=== PATIENT | male | born 1970 | race American Indian/Alaskan Native ===

== ENCOUNTER 2017-11-04 13:58 | Emergency (ER) | payer MEDICAID ==
[2017-11-04 14:01] VITALS: BMI 29.2
[2017-11-04 14:05] VITALS: BP 124/76; PULSE 72; RESP 18; TEMP 98.3; O2SAT 99
--- NOTE | 2017-11-04 14:37 | C.PDOC ---
History Of Present Illness 47 year old male presents to the emergency department with complaints of having pain and swelling to the upper front teeth. Patient reports that the swelling and pain became progressively worse last night. He denies fever and trauma. Time Seen by Provider: 11/04/17 14:09 Chief Complaint (Nursing): Dental Pain History Per: Patient History/Exam Limitations: no limitations Onset/Duration Of Symptoms: Days (5) Current Symptoms Are (Timing): Still Present Quality: Positive for: "Pain", Other (swelling) Past Medical History Reviewed: Historical Data, Nursing Documentation, Vital Signs Vital Signs: Last Vital Signs Temp 98.3 F 11/04/17 14:01 Pulse 72 11/04/17 14:01 Resp 18 11/04/17 14:01 BP 124/76 11/04/17 14:01 Pulse Ox 99 11/04/17 16:26 - Medical History PMH: Asthma Surgical History: No Surg Hx Family History: States: No Known Family Hx - Social History Hx Alcohol Use: No Hx Substance Use: No - Immunization History Hx Tetanus Toxoid Vaccination: Yes Hx Influenza Vaccination: Yes Hx Pneumococcal Vaccination: Yes Review Of Systems Except As Marked, All Systems Reviewed And Found Negative. Constitutional: Negative for: Fever ENT: Positive for: Other (tooth pain and swelling) Physical Exam - Physical Exam Appears: Non-toxic, No Acute Distress Skin: Warm, Dry Head: Atraumatic, Normacephalic Eye(s): bilateral: Normal Inspection Nose: Normal Oral Mucosa: Moist Teeth: Tender To Palpation (to the right central incisor), Other (positive dental abscess) Gingiva: Swelling (mild) Throat: No Erythema Neck: Normal, Supple Lymphatic: Normal Exam Chest: Symmetrical Neurological/Psych: Oriented x3, Normal Speech, Normal Cognition ED Course And Treatment O2 Sat by Pulse Oximetry: 99 (RA) Pulse Ox Interpretation: Normal Progress Note: Plan: Amoxil 500mg PO. Ultram 50mg PO Disposition - Disposition [facility]Outside] Disposition: HOME/ ROUTINE Disposition Time: 14:35 Condition: GOOD Additional Instructions: Follow up with the Dentist within 1-2 days, Return if worsened. Prescriptions: Amoxicillin [Amoxil 500 mg Cap] 500 mg PO TID #29 cap Ibuprofen [Motrin Tab] 800 mg PO TID #20 tab traMADol [Ultram] 50 mg PO Q6 PRN #20 tab PRN Reason: Pain Instructions: Tooth Abscess (DC) Forms: [employer] (Malagasy) - Clinical Impression Clinical Impression: Dental abscess, Dental caries - PA / [employer] LEVEL FIVE / Resident Statement MD/DO has reviewed & agrees with the documentation as recorded. - Scribe Statement The provider has reviewed the documentation as recorded by the Scribe (Andrew Perry) All medical record entries made by the Scribe were at my direction and personally dictated by me. I have reviewed the chart and agree that the record accurately reflects my personal performance of the history, physical exam, medical decision making, and the department course for this patient. I have also personally directed, reviewed, and agree with the discharge instructions and disposition.
== END 2017-11-04 14:42 | disposition home or self-care (01) ==
LOC: C.ER 13:58
DX: K04.7 Periapical abscess without sinus (principal); K02.9 Dental caries, unspecified

== ENCOUNTER 2017-12-06 14:04 | Emergency (ER) | payer MEDICAID ==
[2017-12-06 14:11] VITALS: BMI 28.5
[2017-12-06 14:13] VITALS: BP 128/77; PULSE 79; RESP 18; TEMP 98.8; O2SAT 98
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
== END 2017-12-06 14:35 | disposition home or self-care (01) ==
LOC: C.ER 14:04
DX: G89.29 Other chronic pain (principal); M54.5 Low back pain